=== PATIENT | male | born 1960 | race Asian ===

== ENCOUNTER 2016-08-06 18:45 | Emergency (ER) | payer MEDICAID ==
[~2016-08-06] VITALS: Ht 154.9 cm; Wt 59.9 kg
[2016-08-06 19:25] LABS: Basophils # (auto) 0 uL; Basophils % (auto) 0.4 % (0.0-2.0); Eosinophils # (auto) 0.4 uL; Eosinophils % (auto) 5.6 % (0.0-7.0); Hemoglobin 14.3 g/dL (13.5-17.5); Lymphocytes # (auto) 1.5 uL; Mean Corpuscular Hemoglobin 29.9 pg (28.0-32.0); Mean Corpuscular Volume 87.9 fL (80.0-100.0); Mean Platelet Volume 6.2 fL (7.4-10.4); Monocytes # (auto) 0.6 uL; Monocytes % (auto) 8.2 % (0.0-12.0); Neutrophils # (auto) 4.5 uL; Neutrophils % (auto) 64.8 % (37.0-80.0); Platelet Count (auto) 325 10^3/uL (140-450); Red Cell Distribution Width 12.5 % (11.6-16.0); White Blood Cell 6.9 10^3/uL (4.4-10.8)
[2016-08-06 19:53] LABS: Albumin 4.1 g/dL (3.4-5.0); Alkaline Phosphatase 113 U/L (45-117); Anion Gap 11 (5-15); Aspartate Aminotransferase 26 U/L (15-37); BUN/Creatinine Ratio 13.1; Bilirubin, Total 0.4 mg/dL (0.2-1.0); Blood Urea Nitrogen 16 mg/dL (7-18); Calcium 9.3 mg/dL (8.5-10.1); Carbon Dioxide 30 mmol/L (21-32); Chloride 101 mmol/L (98-107); GFR African American 78 mL/min; GFR Non-African American 65 mL/min; Glucose 197 mg/dL (74-106); Potassium 3.1 mmol/L (3.5-5.1); Sodium 142 mmol/L (136-145); Total Protein 8.9 g/dL (6.4-8.2)
[2016-08-06] MEDS ORDERED: cloNIDine 0.2 mg/24hr 7DAY PATCH TD ONE (20:30)
[2016-08-06] MEDS ORDERED: POTASSIUM CHL 20 Meq TABLET PO ONE (20:30)
[2016-08-06] MEDS ORDERED: cloNIDine HCL 0.1 MG TAB PO ONE ×2 (20:45→21:00)
[2016-08-06 21:53] LABS: INR 0.98 (0.9-1.15); Partial Thromboplastin Time 30.6 sec (22.64-33.71); Prothrombin Time 10.1 sec (9.37-12.3)
[2016-08-06 23:30] VITALS: BP 104/73
== END 2016-08-06 23:50 | disposition home or self-care (01) ==
LOC: ER 18:45
DX: I10 Essential (primary) hypertension (principal); R73.9 Hyperglycemia, unspecified; M10.9 Gout, unspecified; R07.9 Chest pain, unspecified
CPT/HCPCS: 36415; 71020; 80053; 84484; 85025; 85610; 85730; 93005; 94761

== ENCOUNTER 2018-08-07 20:42 | Emergency (ER) | payer MEDICAID ==
[~2018-08-07] VITALS: Ht 157.5 cm; Wt 58.5 kg
[2018-08-07 21:39] VITALS: BP 186/90
[2018-08-07] MEDS ORDERED: LISINOPRIL 10 MG TAB PO ONE (21:45)
[2018-08-07 22:13] LABS: Hematocrit 41.1 % (41.0-53.0); Hemoglobin 14.1 g/dL (13.5-17.5); Mean Corpuscular Hemoglobin 29.9 pg (28.0-32.0); Mean Corpuscular Hgb Conc. 34.3 g/dL (32.0-36.0); Mean Corpuscular Volume 87.1 fL (80.0-100.0); Platelet Count (auto) 305 10^3/uL (140-450); Red Blood Cells 4.72 10^6/uL (4.5-5.90); Red Cell Distribution Width 12.8 % (11.8-14.3); White Blood Cell 8.3 10^3/uL (4.4-10.8)
[2018-08-07 22:20] LABS: Albumin 3.5 g/dL (3.4-5.0); Anion Gap 6 (5-15); Calcium 8.9 mg/dL (8.5-10.1); Carbon Dioxide 28 mmol/L (21-32); Chloride 107 mmol/L (98-107); Potassium 3.6 mmol/L (3.5-5.1); Sodium 141 mmol/L (136-145)
[2018-08-07 22:21] LABS: Basophils % (manual) 0 (0.0-2.0); Blast Cells 0; Metamyelocytes % 0; Myelocytes % 0; Promyelocytes % 0; Reactive Lymphocytes 0
[2018-08-07 22:23] LABS: Alanine Aminotransferase 37 U/L (16-61); Aspartate Aminotransferase 27 U/L (15-37); BUN/Creatinine Ratio 19.3; Blood Urea Nitrogen 22 mg/dL (7-18); GFR African American 84 mL/min; GFR Non-African American 70 mL/min; Glucose 96 mg/dL (74-106); Magnesium 2.3 mg/dL (1.6-2.6)
[2018-08-07 22:30] LABS: INR 0.88 (0.9-1.15); Partial Thromboplastin Time 31.6 sec (23.78-33.04); Prothrombin Time 9.5 sec (9.27-12.13)
[2018-08-07 22:37] LABS: Alkaline Phosphatase 141 U/L (45-117); Bilirubin, Total 0.4 mg/dL (0.2-1.0); Total Protein 8.5 g/dL (6.4-8.2)
[2018-08-07 23:11] LABS: Band Neutrophils % (manual) 5; Eosinophils % (manual) 16 (0-7); Lymphocytes % (manual) 30 (10.0-50.0); Monocytes % (manual) 5 (0-12)
== END 2018-08-08 00:54 | disposition left against medical advice (07) ==
LOC: ER 20:44
DX: I10 Essential (primary) hypertension (principal); R07.9 Chest pain, unspecified; Z53.21 Procedure and treatment not carried out due to patient leaving prior to being seen by health care provider
CPT/HCPCS: 36415; 71046; 80053; 83735; 83880; 84443; 84484; 85007; 85027; 85610; 85730; 93005